=== PATIENT | female | born 1990 | race Caucasian/White ===

== ENCOUNTER 2017-11-26 10:57 | Emergency (ER) | payer OTHER ==
[~2017-11-26] VITALS: Ht 162.6 cm; Wt 86.2 kg
[~2017-11-26 10:57] MED LIST: CLINDAMYCIN HY300 MG PO
[2017-11-26 11:06] VITALS: BP 125/80
[2017-11-26] MEDS ORDERED: ESCITALOPRAM OX20 MG PO (12:23)
--- NOTE | 2017-11-26 13:01 | RADIOLOGY REPORT ---
EXAMINATION: CR LEFT FOOT. CR LEFT ANKLE. CLINICAL INFORMATION: Left foot and ankle pain after trauma. Presumptive diagnosis of fracture. COMPARISON: None TECHNIQUE: 2 views of the left foot. 3 views of the left ankle. FINDINGS: Left foot and ankle: Lateral malleolar soft tissue swelling is seen. No acute fracture or dislocation of the foot or ankle is seen. There is likely a small ankle joint effusion. The ankle mortise is symmetric and intact. There is a well-corticated bone fragment seen posterior to the talus, consistent with an accessory ossicle. Bony structures of the ankle and foot are otherwise unremarkable. IMPRESSION: 1. Lateral malleolar soft tissue swelling and small ankle joint effusion. 2. No acute fracture of the left ankle or left foot.
--- NOTE | 2017-11-26 13:13 | ED ANKLE/FOOT INJURY COMPLAINT ---
History of Present Illness General Chief Complaint: Foot or Ankle Injury Stated Complaint: L ANKLE INJURY Source: patient Exam Limitations: no limitations Vital Signs & Intake/Output Vital Signs & Intake/Output Vital Signs Date Time Temp Pulse Resp B/P B/P Pulse O2 O2 Flow FiO2 Mean Ox Delivery Rate 11/26 1106 97.9 98 20 125/80 98 Room Air Allergies Coded Allergies: Penicillins (Mild, HIVES 11/26/17) amoxicillin (Mild, HIVES 11/26/17) sulfamethoxazole (From BACTRIM) (Mild, HIVES 11/26/17) trimethoprim (From BACTRIM) (Mild, HIVES 11/26/17) Reconcile Medications Escitalopram Oxalate 20 MG TABLET 1 TAB PO DAILY MENTAL HEALTH (Reported) Ibuprofen 800 MG TABLET 1 TAB PO TID PRN PAIN Triage Note: PT C/O MECHANICAL FALL AT WORK AND "ROLLING LEFT ANKLE" STATES IT HAPPENED LAST NIGHT. SLIGHT SWELLING. PT STATES IT IS TENDER. PT MEDICATED WITH 400 MG MOTRIN PO Triage Nurses Notes Reviewed? yes Occurred: yesterday Duration: day(s): (1-2) Timing: single episode today Severity: mild, moderate Severity Numbers: 6 Pain/Injury Location: Left: Foot, Ankle. Method of Injury: fall Modifying Factors: Worsens With: movement. LMP (ages 10-50): unknown : No Patient currently breastfeeds: No HPI: 27-year-old female presents for evaluation after a fall. Patient reports she was walking when she rolled her left ankle causing her to fall. There was no head strike or loss of consciousness. She reports pain to the lateral aspect of the ankle and the dorsum of the foot. She has been able to bear weight since but states it is very painful. No numbness or tingling no knee pain no other injuries. She has not taken any medicine for her pain. (Bam Mayo) Past History Travel History Traveled to [place] past 21 day No Medical History Any Pertinent Medical History? see below for history Neurological: NONE EENT: NONE Cardiovascular: NONE Respiratory: NONE Gastrointestinal: NONE Hepatic: NONE Renal: NONE Musculoskeletal: NONE Psychiatric: NONE Endocrine: NONE Blood Disorders: NONE Cancer(s): NONE INFORMATION RECEPTIONIST/Reproductive: NONE Surgical History Surgical History: N Psychosocial History What is your primary language Vietnamese Tobacco Use: Never used ETOH Use: occasional use Illicit Drug Use: denies illicit drug use Family History Hx Contributory? No (Bam Mayo) Review of Systems Review of Systems Constitutional: Reports: no symptoms. EENTM: Reports: no symptoms. Respiratory: Reports: no symptoms. Cardiovascular: Reports: no symptoms. GI: Reports: no symptoms. Genitourinary: Reports: no symptoms. Musculoskeletal: Reports: joint pain, joint swelling, muscle pain, muscle stiffness. Skin: Reports: no symptoms. Neurological/Psychological: Reports: no symptoms. Hematologic/Endocrine: Reports: no symptoms. Immunologic/Allergic: Reports: no symptoms. All Other Systems: Reviewed and Negative (Bam Mayo) Physical Exam Physical Exam General Appearance: well developed/nourished, no apparent distress, alert, awake Head: atraumatic, normal appearance Eyes: Bilateral: normal appearance, EOMI. Ears, Nose, Throat: hearing grossly normal Neck: normal inspection, supple, full range of motion Cardiovascular/Respiratory: no respiratory distress Back: normal inspection, normal range of motion, no vertebral tenderness Leg/Knee/Thigh Left: normal range of motion, normal inspection Leg/Knee/Thigh Right: normal range of motion, normal inspection Ankle Left: normal range of motion, swelling, tenderness, TENDERNESS TO PALPATION AND SWELLING TO THE LATERAL MALLEOLUS. nO BRUISING FOR RANGE OF MOTION IS INTACT NEUROVASCULAR SUPPLY INTACT Ankle Right: normal inspection, normal range of motion Foot Left: normal range of motion, soft tissue tenderness, swelling, THERE IS SOFT TISSUE SWELLING AND TENDERNESS OF THE DORSUM OF THE LEFT FOOT. nO BRUISING NEUROVASCULAR SUPPLY IS INTACT FOR RANGE OF MOTION INTACT Foot Right: normal inspection, normal range of motion Neuro/Vascular: normal motor function, normal sensation Tendon: normal tendon function Skin: intact, normal color, warm/dry (Bam Mayo) Progress Differential Diagnosis: cellulitis, fracture, dislocation, sprain, contusion Plan of Care: Orders Procedure Date/time Status URINE 11/26 1101 Complete Laboratory Tests 11/26/17 1138: Urine Test NEGATIVE Patient is here for evaluation of left foot and ankle pain after a fall. The pain is located to the lateral aspect of the ankle and dorsum of the foot. X- rays are obtained and are negative. Advised rest ice elevation and compression. Crutches given. Franklin wrap applied. Ibuprofen as needed for pain. Follow-up with primary care doctor for recheck. Diagnostic Imaging: Viewed by Me: Radiology Read. Discussed w/RAD: Radiology Read. Radiology Impression: PATIENT: TALON GONSALVES PRESENT AGE: 27 PATIENT ACCOUNT NO: [id number] : 92 LOCATION: [facility] ORDERING PHYSICIAN: Bam MARCANO SERVICE DATE: 11/26/17 EXAM TYPE: RAD - XRY-ANKLE 3 OR MORE VIEWS L; XRY-FOOT COMPLETE, LEFT EXAMINATION: CR LEFT FOOT. CR LEFT ANKLE. CLINICAL INFORMATION: Left foot and ankle pain after trauma. Presumptive diagnosis of fracture. COMPARISON: None TECHNIQUE: 2 views of the left foot. 3 views of the left ankle. FINDINGS: Left foot and ankle: Lateral malleolar soft tissue swelling is seen. No acute fracture or dislocation of the foot or ankle is seen. There is likely a small ankle joint effusion. The ankle mortise is symmetric and intact. There is a well-corticated bone fragment seen posterior to the talus, consistent with an accessory ossicle. Bony structures of the ankle and foot are otherwise unremarkable. IMPRESSION: 1. Lateral malleolar soft tissue swelling and small ankle joint effusion. 2. No acute fracture of the left ankle or left foot. DICTATED BY: Zina Minor MD DATE/TIME DICTATED:11/26/171254 INTERNET DATABASE SPECIALIST:SHANNAN DATE/TIME TRANSCRIBED:11/26/171254 CONFIDENTIAL, DO NOT COPY WITHOUT APPROPRIATE AUTHORIZATION. <Electronically signed in Other Vendor System> SIGNED BY: Zina Minor MD 11/26/17 1301 (Beau MARCANO,Bam) Departure Departure Disposition: HOME OR SELF CARE Condition: Stable Clinical Impression Primary Impression: Ankle sprain Qualifiers: Encounter type: initial encounter Involved ligament of ankle: unspecified ligament Laterality: left Qualified Code: S93.402A - Sprain of unspecified ligament of left ankle, initial encounter Referrals: Eden Marsh APRN (PCP/Family) Additional Instructions: Rest, keep YOUR Foot elevated. Tylenol or ibuprofen for pain. Apply ice 15-20 minutes every few hours. Walk with crutches. Monitor symptoms return with any concerns follow-up with your doctor tomorrow as scheduled. Please go over all results of today's visit with your primary care doctor. Contact your primary care doctor to let them know you were here in the emergency room. There may be nonspecific findings which may not be related to your visit today here in the emergency room but may require further evaluation and chronic monitoring by your primary care doctor. If you had a laceration today the chance of foreign body always remains. You should follow-up with your primary care doctor for recheck in 3-5 days for a wound check. If you had an x-ray done there is a chance that a fracture could have been missed on initial read and you should follow-up with your primary care doctor for repeat x-rays if symptoms persist. If your blood pressure was elevated here in the emergency room please have rechecked by [facility] primary care doctor within the next 48. If you were prescribed a narcotic here in the emergency room or any type of controlled substances you're not allowed to drive while taking this medication or operate any type of heavy machinery. Narcotics can make you feel lightheaded dizziness nausea and can cause constipation. You may need to picker feeder a stool softener. Thank you for choosing [facility] emergency room. Please return to the emergency room immediately if you have any other concerns worsening of symptoms. Departure Forms: Customer Survey General Discharge Information Industrial Accident Report Prescriptions: Current Visit Scripts Ibuprofen 1 TAB PO TID PRN PAIN #30 TAB (Bam Mayo) PA/[employer] Co-Sign Statement Statement: ED Attending supervision documentation- [] I saw and evaluated the patient. I have also reviewed all the pertinent lab results and diagnostic results. I agree with the findings and the plan of care as documented in the PA's/[employer]'s documentation. [X] I have reviewed the ED Record and agree with the PA's/[employer]'s documentation. [] Additions or exceptions (if any) to the PAs/[employer]'s note and plan are summarized below: [] (Antoine Phillips DO
[2017-11-26] MEDS ORDERED: IBUPROFEN800 M1 PO (13:28)
== END 2017-11-26 13:30 ==
LOC: ERH 10:57
DX: S93.402A Sprain of unspecified ligament of left ankle, initial encounter (principal); X50.9XXA Other and unspecified overexertion or strenuous movements or postures, initial encounter; W19.XXXA Unspecified fall, initial encounter; Y93.01 Activity, walking, marching and hiking
CPT/HCPCS: 73610-LT; 73630-LT; 81025